=== PATIENT | male | born 1985 | race Caucasian/White ===

== ENCOUNTER 2020-10-01 17:17 | Emergency (ER) | payer OTHER ==
--- NOTE | 2020-10-01 18:09 | EDM.PDOC ---
ED HPI GENERAL MEDICAL PROBLEM - General Chief Complaint: Upper Extremity Injury/Pain Stated Complaint: HAND INJURY Time Seen by Provider: 10/01/20 17:57 Source of Information: Reports: Patient History Limitations: Reports: No Limitations - History of Present Illness INITIAL COMMENTS - FREE TEXT/NARRATIVE: Hugh is a 35-year-old male presenting to the ED for evaluation of left hand pain. Patient was working with [employer] and got his hand caught by an 8 x 8 timber hitting the back of his hand between the third and fourth MCPs. He has significant swelling. He does have a history of a significant boxer's fracture years ago on the same hand and has loss of functional fifth MCP due to that injury. He denies any numbness or tingling in the hand. He does have significant swelling over the fourth MCP and has mild limitation to the range of motion of that joint. - Related Data Allergies Allergy/AdvReac Type Severity Reaction Status Date / Time No Known Allergies Allergy Verified 10/01/20 17:42 Home Meds: Home Meds Losartan Potassium 25 mg PO DAILY 10/01/20 [History] Omeprazole Magnesium [Prilosec Otc] 20 mg PO DAILY 10/01/20 [History] Past Medical History Cardiovascular History: Reports: Hypertension Gastrointestinal History: Reports: GERD - Past Surgical History Head Surgeries/Procedures: Reports: None Cardiovascular Surgical History: Reports: None GI Surgical History: Reports: None Musculoskeletal Surgical History: Reports: Other (See Below) Dermatological Surgical History: Reports: None Social & Family History - Tobacco Use Tobacco Use Status *Q: Current Every Day Tobacco User Years of Tobacco use: 23 Packs/Tins Daily: 1 Used Tobacco, but Quit: No Second Hand Smoke Exposure: No - Caffeine Use Caffeine Use: Reports: Coffee, Energy Drinks - Recreational Drug Use Recreational Drug Use: No Review of Systems - Review of Systems Review Of Systems: See Below Constitutional: Reports: No Symptoms Musculoskeletal: Reports: Hand Pain (Left hand pain over the dorsal third and fourth MCPs. Swelling over this area.) Skin: Reports: Bruising (Bruising over the third and fourth dorsal MCPs on the left hand) Neurological: Reports: No Symptoms ED EXAM, GENERAL - Physical Exam Exam: See Below Exam Limited By: No Limitations General Appearance: Alert, No Apparent Distress Extremities: Normal Capillary Refill, Joint Swelling (Swelling over the third and fourth MCP), Limited Range of Motion (Mild limitation of the fourth MCP) Course - Vital Signs Last Recorded V/S: Last Vital Signs Temp 36.6 C 10/01/20 17:44 Pulse 82 10/01/20 17:44 Resp 16 10/01/20 17:44 BP 143/83 H 10/01/20 17:44 Pulse Ox 97 10/01/20 17:44 - Orders/Labs/Meds Orders: Active Orders 24 hr Category Date Time Status Hand Comp Min 3V Lt [CR] Stat Exams 10/01/20 17:59 Ordered - Re-Assessments/Exams Free Text/Narrative Re-Assessment/Exam: 10/01/20 18:15 x-ray of the left hand shows evidence from an old boxer's fractu re with angulation of the distal metacarpal. There is no additional fractures or osseous abnormalities noted. This leads me to think that this is likely a contusion of the hand and nothing more. We discussed management including ice, elevation, and rest. He may take Tylenol or ibuprofen for pain. Activity as tolerated. Patient is suitable for discharge in satisfactory condition. Departure - Departure Time of Disposition: 18:15 Disposition: Home, Self-Care 01 Clinical Impression: Contusion of left hand, initial encounter - Discharge Information Instructions: Hand Contusion, [id number] Referrals: PCP,None [Primary Care Provider] - Care Plan Goals: Your x-rays demonstrated the old boxer's fracture but no new fractures. This is likely a collection of blood under the skin from soft tissue bruising. I recommend ice, elevation, and either Tylenol or ibuprofen for pain control. You may use the hand as tolerated. Sepsis Event Note (ED) - Evaluation Sepsis Screening Result: No Definite Risk - Focused Exam Vital Signs: Vital Signs Temp Pulse Resp BP Pulse Ox 10/01/20 17:44 36.6 C 82 16 143/83 H 97 10/01/20 17:40 36.6 C 82 16 143/83 H 97 - Problem List & Annotations (1) Contusion of left hand, initial encounter SNOMED Code(s): 9205301 Code(s): S60.222A - CONTUSION OF LEFT HAND, INITIAL ENCOUNTER Status: Acute Priority: Low Current Visit: Yes - Problem List Review Problem List Initiated/Reviewed/Updated: Yes - My Orders Last 24 Hours: My Active Orders 10/01/20 17:59 Hand Comp Min 3V Lt [CR] Stat - Assessment/Plan Last 24 Hours: My Active Orders 10/01/20 17:59 Hand Comp Min 3V Lt [CR] Stat
--- NOTE | 2020-10-02 09:24 | CR ---
Hand Comp Min 3V Lt CLINICAL HISTORY: Injury FINDINGS: There is no acute fracture or dislocation of the hand. There is an angular deformity of the distal aspect of the fifth metacarpal which is likely related to old boxer's fracture. IMPRESSION: No acute fracture
== END 2020-10-01 18:21 | disposition home or self-care (01) ==
LOC: JP.ED 17:17
DX: S60.032A Contusion of left middle finger without damage to nail, initial encounter (principal); S60.042A Contusion of left ring finger without damage to nail, initial encounter; I10 Essential (primary) hypertension; K21.9 Gastro-esophageal reflux disease without esophagitis; Z72.0 Tobacco use; Z79.899 Other long term (current) drug therapy; W23.0XXA Caught, crushed, jammed, or pinched between moving objects, initial encounter; Y99.0 Civilian activity done for income or pay
CPT/HCPCS: 73130-26-LT; 73130-LT; 99283-25

== ENCOUNTER 2021-01-12 20:08 | Emergency (ER) | payer OTHER ==
--- NOTE | 2021-01-12 20:54 | EDM.PDOC ---
ED HPI GENERAL MEDICAL PROBLEM - General Chief Complaint: Bite:Animal, Insect Stated Complaint: TICK BITE Time Seen by Provider: 01/12/21 20:19 Source of Information: Reports: Patient History Limitations: Reports: No Limitations - History of Present Illness INITIAL COMMENTS - FREE TEXT/NARRATIVE: Hugh is a 35-year-old male presenting to the ED for evaluation of a tick bite to the inner left lower extremity. The patient first noticed the tick yesterday and his removed it with tweezers. She did core out the head with a tweezers. Today the area was much more red and swollen with a target lesion developing prompting him to come in for evaluation. I did identify it as a deer tick. Denies any fever, chills, or joint aches. - Related Data Allergies Allergy/AdvReac Type Severity Reaction Status Date / Time No Known Allergies Allergy Verified 01/12/21 20:40 Home Meds: Home Meds Losartan Potassium 25 mg PO DAILY 10/01/20 [History] Omeprazole Magnesium [Prilosec Otc] 20 mg PO DAILY 10/01/20 [History] Past Medical History Cardiovascular History: Reports: Hypertension Gastrointestinal History: Reports: GERD - Past Surgical History Head Surgeries/Procedures: Reports: None Cardiovascular Surgical History: Reports: None GI Surgical History: Reports: None Musculoskeletal Surgical History: Reports: Other (See Below) Dermatological Surgical History: Reports: None Social & Family History - Caffeine Use Caffeine Use: Reports: Coffee, Energy Drinks ED ROS GENERAL - Review of Systems Review Of Systems: See Below Constitutional: Reports: No Symptoms Musculoskeletal: Reports: No Symptoms Skin: Reports: Lesions (Area of redness on the inner upper left thigh measuring 1 cm at the core and a second ring measuring about 3-1/2 cm developing.) Neurological: Reports: No Symptoms Hematologic/Lymphatic: Reports: No Symptoms Immunologic: Reports: No Symptoms ED EXAM, ANIMAL BITE - Physical Exam Exam: See Below Exam Limited By: No Limitations General Appearance: Alert, No Apparent Distress Neurological: Alert, Oriented, Normal Cognition, No Motor/Sensory Deficits Skin Exam: Other (There is a 1 cm bright red central lesion around a necrotic core or the deer tick had embedded. There is a second ring starting to develop at 3.5 cm from the center of the core consistent with erythema migrans.) Course - Re-Assessments/Exams Free Text/Narrative Re-Assessment/Exam: 01/12/21 20:55 the patient was bit by a what he describes as a deer tick and now is developing erythema migrans. We will initiate treatment for Lyme's disease with doxycycline 1 had milligrams twice daily for 21 days. This was sent out to the [facility]. The patient was given information associated with Lyme's disease as well as tick bites in general. He is afebrile at this time so likely does not have Babesia or Anaplasma. Indications return to the ER were discussed and he was discharged in satisfactory condition. Departure - Departure Time of Disposition: 20:48 Disposition: Home, Self-Care 01 Clinical Impression: Acute Lyme disease Tick bite of left lower leg with infection Qualifiers: Encounter type: initial encounter Qualified Code(s): S80.862A - Insect bite (nonvenomous), left lower leg, initial encounter; L08.9 - Local infection of the skin and subcutaneous tissue, unspecified; W57.XXXA - Bitten or stung by nonvenomous insect and other nonvenomous arthropods, initial encounter - Discharge Information Instructions: Tick Bite Information, Adult, Lyme Disease Referrals: PCP,None [Primary Care Provider] - Care Plan Goals: You are developing the erythema migrans rash associated with Lyme's disease from a deer tick bite. We are going to start you on antibiotics with doxycycline 100 mg twice daily for 21 days to treat this. Please make sure you use the entire course of the antibiotic. - Problem List & Annotations (1) Tick bite of left lower leg with infection SNOMED Code(s): 455280090 Code(s): S80.862A - INSECT BITE (NONVENOMOUS), LEFT LOWER LEG, INITIAL ENCOUNTER; L08.9 - LOCAL INFECTION OF THE SKIN AND SUBCUTANEOUS TISSUE, UNSP; W57.XXXA - BIT/STUNG BY NONVENOM INSECT & OTH NONVENOM ARTHROPODS, INIT Status: Acute Priority: Low Current Visit: Yes Qualifiers: Encounter type: initial encounter Qualified Code(s): S80.862A - Insect bite (nonvenomous), left lower leg, initial encounter; L08.9 - Local infection of the skin and subcutaneous tissue, unspecified; W57.XXXA - Bitten or stung by nonvenomous insect and other nonvenomous arthropods, initial encounter (2) Acute Lyme disease SNOMED Code(s): 087066952 Code(s): A69.20 - LYME DISEASE, UNSPECIFIED Status: Acute Priority: Medium Current Visit: Yes - Problem List Review Problem List Initiated/Reviewed/Updated: Yes
== END 2021-01-12 20:56 | disposition home or self-care (01) ==
LOC: JP.ED 20:08
DX: S80.862A Insect bite (nonvenomous), left lower leg, initial encounter (principal); L08.9 Local infection of the skin and subcutaneous tissue, unspecified; A69.20 Lyme disease, unspecified; I10 Essential (primary) hypertension; K21.9 Gastro-esophageal reflux disease without esophagitis; Z79.899 Other long term (current) drug therapy; W57.XXXA Bitten or stung by nonvenomous insect and other nonvenomous arthropods, initial encounter
CPT/HCPCS: 99282

== ENCOUNTER 2022-10-19 13:44 | Emergency (ER) | payer OTHER, MEDICAID ==
[2022-10-19] MEDS ORDERED: Lidocaine 1% 10 ML MDV INJECT ONE (14:45)
== END 2022-10-19 15:27 | disposition home or self-care (01) ==
LOC: JP.ED 13:44
DX: S61.212A Laceration without foreign body of right middle finger without damage to nail, initial encounter (principal); I10 Essential (primary) hypertension; K21.9 Gastro-esophageal reflux disease without esophagitis; Z79.899 Other long term (current) drug therapy; W26.0XXA Contact with knife, initial encounter
CPT/HCPCS: 12002; 99282

== ENCOUNTER 2022-12-18 07:41 | Emergency (ER) | payer MEDICAID, OTHER ==
[2022-12-18 08:05] LABS: BASOPHILS ABSOLUTE AUTO 0.03 K/uL (0.00-0.10); BASOPHILS PERCENT AUTO 0.6 % (0.1-1.3); BICARBONATE,VENOUS 26.2 mmol/L; CARBOXYHEMOGLOBIN 2.2 % (0.0-1.6); EOSINOPHILS ABSOLUTE AUTO 0.15 K/uL (0.00-0.40); EOSINOPHILS PERCENT AUTO 3.2 % (0.0-5.4); HEMATOCRIT 43.6 % (38.4-49.7); HEMOGLOBIN 16.2 g/dL (12.9-16.9); IMMATURE GRAN PERCENT AUTO 0.2 % (0.0-0.7); LYMPHOCYTES ABSOLUTE AUTO 2.15 K/uL (0.8-3.3); LYMPHOCYTES PERCENT AUTO 45.8 % (11.4-47.7); MEAN CORPUSCULAR HEMOGLOBIN 33.5 pg (31.6-35.5); MEAN CORPUSCULAR HGB CONC 37.2 g/dL (31.6-35.5); MEAN CORPUSCULAR VOLUME 90.1 fL (81.4-99.0); METHEMOGLOBIN 0.6 %; MONOCYTES ABSOLUTE AUTO 0.46 K/uL (0.20-0.90); MONOCYTES PERCENT AUTO 9.8 % (3.3-12.6); NEUTROPHILS ABSOLUTE AUTO 1.89 K/uL (1.0-7.6); NEUTROPHILS PERCENT AUTO 40.4 % (40.0-78.1); O2 SATURATION VENOUS 94.6; PH,VENOUS 7.463 (7.350-7.450); PLATELET COUNT,PLT 185 K/uL (130-375); PO2 VENOUS 72.6 mm/Hg; RED BLOOD CELL COUNT 4.84 M/uL (4.14-5.76); TOTAL HEMOGLOBIN 16.6 g/dL (13.5-18.0); WHITE BLOOD CELL COUNT,WBC 4.7 K/uL (3.2-11.0)
[2022-12-18 08:14] LABS: IMMATURE GRAN ABSOLUTE AUTO 0.01 K/uL (0.00-0.23)
[2022-12-18 08:32] LABS: PROTHROMBIN TIME 10.2 sec (9.2-10.6); PTT,PARTIAL THROMBOPLSTIN TIME 24.5 sec (21.8-27.3)
[2022-12-18 08:38] LABS: A/G RATIO 0.8 (1.2-2.2); ALANINE AMINOTRANSFERASE,ALT 116 U/L (12-78); ALBUMIN 3.4 g/dL (3.4-5.0); ALKALINE PHOSPHATASE 73 U/L (46-116); ASPARTATE AMNIOTRANSFERASE,AST 53 U/L (15-37); BILIRUBIN TOTAL 0.4 mg/dL (0.2-1.0); BLOOD UREA NITROGEN,BUN 11 mg/dL (7-18); CALCIUM 8.6 mg/dL (8.5-10.1); CARBON DIOXIDE,CO2 26 mmol/L (21-32); CHLORIDE,CL 100 mmol/L (100-108); CREATININE 1.2 mg/dL (0.8-1.3); EST CRCL DRUG DOSING (CG) 90.71 mL/min; ESTIMATED GFR 79 mL/min (>60); GLUCOSE RANDOM 120 mg/dL (74-106); POTASSIUM,K 3.2 mmol/L (3.6-5.2); PROTEIN TOTAL,TP 7.5 g/dL (6.4-8.2); SODIUM,NA 137 mmol/L (140-148)
[2022-12-18 08:39] LABS: TROPONIN I HIGH SENSITIVITY 4.3 pg/mL (<=60.3)
[2022-12-18 08:40] LABS: ANION GAP 14.2 mmol/L (5.0-14.0)
[2022-12-18] MEDS ORDERED: Magnesium Sulfate/Water 2 GM in Premix Bag 1 BAG IV ONE (09:04)
[2022-12-18] MEDS ORDERED: Potassium Chloride 20 MEQ Tab.ER PO ONE (09:04)
[2022-12-18 09:11] LABS: AMPHETAMINES SCREEN, URINE NEGATIVE (NEGATIVE); BARBITURATE SCREEN,URINE NEGATIVE (NEGATIVE); BENZODIAZEPINES SCREEN,URINE NEGATIVE (NEGATIVE); METHADONE SCREEN, URINE NEGATIVE (NEGATIVE); METHAMPHETAMINES SCREEN, URINE NEGATIVE (NEGATIVE); OXYCODONE SCREEN,URINE NEGATIVE (NEGATIVE); PROPOXYPHENE SCREEN,URINE NEGATIVE (NEGATIVE); THC SCREEN,URINE 50 NG/ML NEGATIVE (NEGATIVE)
== END 2022-12-18 10:40 | disposition home or self-care (01) ==
LOC: JP.ED 07:41
DX: R07.89 Other chest pain (principal); E83.42 Hypomagnesemia; E87.6 Hypokalemia; I10 Essential (primary) hypertension; E66.09 Other obesity due to excess calories; R74.01 Elevation of levels of liver transaminase levels; Z68.30 Body mass index [BMI] 30.0-30.9, adult
CPT/HCPCS: 36415; 80053; 80305; 82803; 83690; 83735; 84484; 85025; 85610; 85730; 93005; 96365; 99285; A9270; J3475; 93010; 99284